=== PATIENT | female | born 1995 | race Caucasian/White ===

== ENCOUNTER 2022-01-25 14:10 | Emergency (ER) | payer OTHER, SELFPAY ==
[2022-01-25 14:18] VITALS: BP 111/85; PULSE 61; RESP 16; TEMP 36.9; O2SAT 99; BMI 23.5
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
== END 2022-01-25 15:07 | disposition home or self-care (01) ==
LOC: ED 15:01
PROVIDERS: Emergency Provider Emergency Medicine Emergency Medical Services; PCP Family Medicine
DX: S13.4XXA Sprain of ligaments of cervical spine, initial encounter (principal); S16.1XXA Strain of muscle, fascia and tendon at neck level, initial encounter; Y32.XXXA Crashing of motor vehicle, undetermined intent, initial encounter; Y93.9 Activity, unspecified; Y92.410 Unspecified street and highway as the place of occurrence of the external cause; Y99.9 Unspecified external cause status
CPT/HCPCS: 99282; 99283; 99284

== ENCOUNTER 2022-08-24 07:13 | Outpatient (CLI) | payer OTHER, SELFPAY ==
--- NOTE | 2022-08-24 07:15 | CRLHL7_ITS ---
For Patients: As a result of the Century Cures Act, medical imaging exams and procedure reports are released immediately into your electronic medical record. You may view this report before your referring provider. If you have questions, please contact your health care provider. BILATERAL BREAST MRI WITHOUT AND WITH GADOLINIUM, 08/24/2022 CLINICAL HISTORY: 27-year-old woman with family history of breast cancer in a paternal half sister at age 35. No current breast concerns. INDICATION FOR BREAST MRI: Screening breast MRI in this high-risk woman. COMPARISON STUDIES: Mammogram 02/02/2022. CONTRAST: 20 cc Dotarem. TECHNIQUE: The patient was positioned prone using a breast coil. Multiple imaging sequences were obtained using 1-1.5 mm thick slices with no gap. The image sequences include T2-weighted STIR in the axial plane, T1-weighted nonfat-saturated gradient echo in the axial plane, pre- and post-contrast T1-weighted FLASH 3D with fat suppression in the axial plane, and T1-weighted FLASH high-resolution 3D with fat suppression in the sagittal plane. Image post-processing was performed on a [employer] workstation. Complex 3D rendering including maximum intensity projections (MIPS) and volumetric renderings were obtained to optimize visualization of the extent of pathology and relationship to the nipple, skin, and chest wall. This aids in determining feasibility of breast conservation surgery. Subtraction, multiplanar reconstruction, mean curve determination, and angiogenesis mapping were also performed. The study was technically adequate. FINDINGS: Amount of Fibroglandular Tissue: Heterogeneous fibroglandular tissue. Breast Background Enhancement: Mild. RIGHT Breast: No suspicious enhancement for malignancy. LEFT Breast: No suspicious enhancement for malignancy. Lymph Nodes: Axillary lymph nodes are normal in size and morphology. IMPRESSIONS AND RECOMMENDATIONS: No evidence for malignancy. Recommend annual breast cancer screening including breast MRI. Annual screening mammography to begin at age 30. BI-RADS Category 1: Negative Maureen Harper M.D. Breast[facility] Radiologist [facility] Transcribed: 11:59 a.m. [email or web address] jj/Dictated by: Maureen Harper MD @ 08/25/2022 12:07:00 PM (Electronically Signed)
== END 2022-08-24 07:14 | disposition home or self-care (01) ==
PROVIDERS: PCP Family Medicine; Visit Provider Family Medicine
DX: Z12.31 Encounter for screening mammogram for malignant neoplasm of breast (principal); Z80.3 Family history of malignant neoplasm of breast
CPT/HCPCS: 77049; A9575